=== PATIENT | female | born 1975 | race Caucasian/White ===

== ENCOUNTER 2018-03-14 10:53 | Emergency (ER) | payer BC, SELFPAY ==
[2018-03-14] VITALS (17 sets, daily range): BP systolic 84–110; BP diastolic 36–70; PULSE 103–123; RESP 14–22; TEMP 36.3–37.1; O2SAT 91–98; BMI 24.2
--- NOTE | 2018-03-14 11:24 | CT_ITS ---
STUDY: CT ABDOMEN AND PELVIS WITHOUT CONTRAST REASON FOR EXAM: Female, 42 years old. Jaundice. Weakness and leg swelling. RADIATION DOSAGE (If Supplied By Facility): CTDIvol = ( 7.89 ) mGy, DLP = ( 398.38 ) mGycm TECHNIQUE: Transaxial images were obtained from the dome of the diaphragm to the symphysis pubis without oral contrast, and without intravenous contrast. Sagittal and coronal images were reconstructed. Individualized dose optimization techniques were used for this CT. COMPARISON: None. FINDINGS: Limited views through the lower chest are unremarkable. A small pericardial effusion is seen. Liver is small with a slightly nodular surface pattern and suspicious for cirrhosis. No gross mass although this exam is limited by absence of IV contrast. No significant splenomegaly. Probable epigastric varices although these are difficult to evaluate without IV contrast. There is certainly recannulation and enlargement of the umbilical vein. Distended gallbladder with probable milk of calcium bile, possible gravel, and cannot exclude vicarious excretion of contrast from a previous exam. Pancreas grossly negative. No gross acute abnormality of the kidneys. Evaluation of the GI tract is limited by absence of oral contrast. Cannot exclude stomach wall thickening. No dilated loops of bowel or evidence for obstruction. Cannot exclude segmental thickening of the levine of the small or large bowel. Cannot exclude enteritis or colitis. Moderate diffuse fecal retention. Diverticulosis without definite diverticulitis. Appendix is not definitely seen. Moderate ascites in all quadrants. Grossly normal aorta. No definite retroperitoneal adenopathy. In the pelvis, grossly normal uterus and bladder and rectum. There is asymmetric enlargement of the right upper thigh with significant subcutaneous edema when compared to the left, and there is enlargement of most of the visualized right thigh, gluteus, and especially the right piriformis muscles. This may all be edema and/or related to intramuscular hematoma. Without IV contrast cannot evaluate patency of the iliac veins or IVC. Recommend venous Doppler of the right lower extremity. Skeletal structures are unremarkable. CT/Abdomen/Pelvis without Cont IMPRESSION: Evidence for cirrhosis and portal hypertension with with varices. Ascites. Distended gallbladder with milk of calcium bile and/or gallbladder gravel. Very limited evaluation of the GI tract-cannot exclude segments of bowel wall thickening. Asymmetric enlargement of the right thigh, right thigh muscles, gluteus muscles, and piriformis with subcutaneous edema. This can be due to obstruction of lymphatics or venous drainage. Venous Doppler recommended. Electronically Signed: John Hilton MD at 12:55 EDT , Service support ,
[2018-03-14 11:56] LABS: Absolute Lymphocyte Count 1.56 X10^3/ul (0.83-4.51); Absolute Neutrophil Count 9.6 X10^3/uL (2.0-7.7); Basophil# 0.08 X10^3/uL; Basophil% 0.6 % (0-1); Eosinophil# 0.07 X10^3/uL; Eosinophils% 0.5 % (0-5); Hematocrit 14.9 % (37-47); Lymphocyte # 1.56 X10^3/ul (4.0); Lymphocyte % 11.9 % (19-41); Mean Corp Hgb Conc 32.9 g/gl (32-36); Mean Corpuscular Hgb 38.6 pg (27.0-32.0); Mean Corpuscular Volume 117.3 fL (81-99); Mean Platelet Vol. 9.9 fl (6.2-12.0); Monocyte# 1.75 X10^3/uL; Monocyte% 13.4 % (0-10); Neutrophil # 9.56 X10^3/uL (2.7-7.7); Platelet Count 88 K/mm3 (150-450); RBC Distribution Width CV 14.1 % (11.6-14.6); RBC Distribution Width SD 55.4 fl (35.1-43.9); Red Blood Count 1.27 M/mm3 (4.2-5.4); White Blood Count 13.1 K/mm3 (4.4-11.0)
[2018-03-14 12:00] LABS: Prothrombin Time (Protime)PT. 35.6 SECONDS (11.7-14.9)
[2018-03-14 12:01] LABS: Partial Thromboplast Time 63.2 Seconds (24.1-36.2)
[2018-03-14 12:02] LABS: Hemoglobin 4.9 g/dl (12.0-15.0)
[2018-03-14 12:03] LABS: Differential Indicated SCAN CRITERIA MET; International Normalized Ratio 3.5; POSITIVE COUNT YES; POSITIVE DIFFERENTIAL YES; POSITIVE MORPHOLOGY NO
[2018-03-14 12:08] LABS: AST(SGOT) 130 U/L (15-37); Alanine Aminotransfer ALT/SGPT 33 U/L (13-56); Albumin, Serum 1.3 g/dL (3.2-5.0); Alkaline Phosphatase 141 U/L (45-117); Anion Gap 10 (5-15); BUN 7 mg/dL (7-18); BUN/Creat Ratio 13.5 RATIO (10-20); Bilirubin, Direct 5.12 mg/dL (0.00-0.30); Calcium,Total 7.1 mg/dL (8.5-10.1); Chloride 98 mmol/L (98-107); Creatinine, Serum 0.52 mg/dL (0.55-1.02); EST Glomerular Filtration Rate 136 mL/min (>60); Est Glom Filt Rate - Afr Amer 165 mL/min (>60); Estimated Creatinine Clearance 129.24 ml/min; Glucose 128 mg/dL (74-106); Potassium 4.1 mmol/L (3.5-5.1); Protein, Total 6.3 g/dL (6.4-8.2); Sodium Level 131 mmol/L (136-145)
[2018-03-14 12:20] LABS: Lactic Acid 6.4 mmol/L (0.4-2.0)
[2018-03-14 12:51] LABS: Hypochromasia 2+; Platelet Estimate MKD DEC (ADEQ); Polychromasia 1+
[2018-03-14 12:52] LABS: Other RBC Morphology 1+; Target Cells RARE
--- NOTE | 2018-03-14 13:31 | ED.DCSUM_ITS ---
- ER Visit Summary Date of Service: 03/14/18 Chief Complaint: Weakness History of Present Illness: The patient is a 42 F presenting for evaluation secondary to weakness. Patient apparently over the course of the last 2 weeks has been having issues with peripheral edema, increasing weakness, and jaundice. Patient is a long-standing history of chronic alcoholism. Patient reports that she is down to 4 beers a day. She reports that she has been drinking heavily long-term. Patient apparently saw our nurse practitioner couple weeks ago was noted to have low platelets and was recommended a oncology follow-up. Patient was also started on Lasix secondary to peripheral edema. Patient now is developing lightheadedness and nausea and also has been having blood in her stool as well as blood in her urine. She denies any pain associated with this. Review of systems otherwise negative. Physical Examination: Vital signs notable for blood pressure 85/47 heart rate of 103. Well-nourished female not in physiologic distress. Bilateral proptosis is noted with scleral icterus. Oropharynx shows moist mucous membranes. No JVD noted. Heart was tachycardic and regular. Lungs clear. Abdomen was distended with positive fluid wave and no tenderness. 2+ bilaterally symmetric peripheral edema, skin is significantly jaundiced. Patient is alert and oriented no lateralizing deficits and no evidence of asterixis Test Results: CBC shows a hemoglobin of 4.9 with a platelet count of 88, basic metabolic panel unremarkable but liver panel shows evidence of total bilirubin 8.6 direct bilirubin 5.1 INR elevated to 3.5 lactic acid elevated to 6.4 CT abdomen and pelvis shows stigmata of liver failure with ascites and portal hypertension and likely varices Emergency Department Course and Treatment: Patient presented with weakness and hypotension. She has stigmata of having liver failure. Her laboratory workup as noted above confirmed this. I did discuss this with the hospitalist at this facility and given her lack of GI backup and how ill the patient is we feel the patient needs a higher level of care. Patient was typed and crossmatched for 2 units of red cells and 2 units of plasma. I contacted [facility] who agreed to accept the patient in transfer. Patient will be transferred for further management. Disposition: Transfer Impression: 1. Hepatic failure 2. GI bleed 3. Anemia 4. History of alcoholism 5. Hypotension Critical care time 45 minutes This note was generated with [employer] dictation software. It may contain incorrect words, spelling, and punctuation that were not noted in review of the chart prior to signing ED Disposition - Plan for ED Patient: Chief Complaint: Weakness Referrals: Raffy Murray MD [Primary Care Provider] -
[2018-03-14] MEDS: Ondansetron 4 MG/2 ML Vial IV (14:58)
[2018-03-14 15:48] LABS: Reflex Lactate? Y
[2018-03-14 16:52] LABS: Lactic Acid 6.1 mmol/L (0.4-2.0)
[2018-03-16 10:04] LABS: Pathologist Review Reviewed
== END 2018-03-14 22:41 | disposition short-term general hospital (02) ==
LOC: ED 12:34
PROVIDERS: Emergency Provider Emergency Medicine; Family Provider Family Medicine; PCP Family Medicine
DX: F10.20 Alcohol dependence, uncomplicated (principal); K70.40 Alcoholic hepatic failure without coma; R18.8 Other ascites; Y90.9 Presence of alcohol in blood, level not specified; K92.2 Gastrointestinal hemorrhage, unspecified; D64.9 Anemia, unspecified; I95.9 Hypotension, unspecified; Z72.0 Tobacco use
CPT/HCPCS: 74176; 80048; 80076; 83605; 85025; 85610; 85730; 86850; 86900; 86920; 86922; 96374; 99284; J7040; P9016; P9017; A4216; J2405

== ENCOUNTER → 2019-01-08 | Outpatient (CLI) | payer BC, SELFPAY ==
[2019-01-08 15:08] LABS: Mucous, Urine 0 SEEN /hpf (<or=2+); Red Blood Cells-Urine 0 SEEN /hpf (0-5); White Blood Cells 0 SEEN /hpf (0-5)
[2019-01-08 17:49] LABS: Absolute Lymphocyte Count 1.27 X10^3/ul (0.83-4.51); Absolute Neutrophil Count 3.4 X10^3/uL (2.0-7.7); Basophil# 0.04 X10^3/uL; Basophil% 0.7 % (0-1); Eosinophil# 0.17 X10^3/uL; Eosinophils% 2.9 % (0-5); Hematocrit 41.3 % (37-47); Hemoglobin 14.5 g/dl (12.0-15.0); Lymphocyte # 1.27 X10^3/ul (4.0); Lymphocyte % 21.7 % (19-41); Mean Corp Hgb Conc 35.1 g/gl (32-36); Mean Corpuscular Hgb 37.7 pg (27.0-32.0); Mean Corpuscular Volume 107.3 fL (81-99); Mean Platelet Vol. 10.3 fl (6.2-12.0); Monocyte# 0.92 X10^3/uL; Monocyte% 15.7 % (0-10); Neutrophil # 3.44 X10^3/uL (2.7-7.7); Neutrophil % 58.8 % (47-70); Platelet Count 77 K/mm3 (150-450); RBC Distribution Width CV 13.3 % (11.6-14.6); RBC Distribution Width SD 51.9 fl (35.1-43.9); Red Blood Count 3.85 M/mm3 (4.2-5.4); White Blood Count 5.9 K/mm3 (4.4-11.0)
[2019-01-08 17:50] LABS: POSITIVE COUNT NO; POSITIVE DIFFERENTIAL NO; POSITIVE MORPHOLOGY NO
[2019-01-08 17:53] LABS: Color, Urine Yellow (Yellow); Glucose, Dipstick Normal (Normal); Ketone-Dipstick Negative (Negative); Leukocyte Esterase-Dipstick 25 /ul (Negative); Nitrite-Dipstick Positive (Negative); Occult Blood-Urine Negative /ul (Negative); Protein-Dipstick Negative (Negative); Specific Gravity, Urine 1.005 (1.002-1.030); Urine Bilirubin Dipstick Negative (Negative); Urine Clarity Clear (Clear); Urine Urobilinogen Normal (Normal)
[2019-01-08 18:02] LABS: International Normalized Ratio 1.8
[2019-01-08 18:12] LABS: ALB/GLOB Ratio 0.6 RATIO (0.9-2.4); AST(SGOT) 88 U/L (15-37); Alanine Aminotransfer ALT/SGPT 47 U/L (13-56); Albumin, Serum 3.4 g/dL (3.2-5.0); Alkaline Phosphatase 157 U/L (45-117); Anion Gap 9 (5-15); BUN 4 mg/dL (7-18); Calcium,Total 8.5 mg/dL (8.5-10.1); Chloride 98 mmol/L (98-107); Cholesterol 173 mg/dL (200); EST Glomerular Filtration Rate 142 mL/min (>60); Est Glom Filt Rate - Afr Amer 172 mL/min (>60); Globulin 5.4 g/dL (2.2-4.2); Glucose 103 mg/dL (74-106); High Density Lipoprotein 83 mg/dL; Potassium 3.7 mmol/L (3.5-5.1); Protein, Total 8.8 g/dL (6.4-8.2); Sodium Level 136 mmol/L (136-145); Thyroid Stim Hormone (TSH) 1.94 uIU/mL (0.358-3.74); Triglycerides 88 mg/dL; Very Low Density Lipoprotein 18 mg/dL (5-40)
[2019-01-08 18:25] LABS: Bacteria 2+ /hpf (None Seen); Squamous Epithelial Cells - UA 0-5 SEEN /hpf (5-10)
[2019-01-09 14:28] LABS: Vitamin B12 > 2000 pg/mL (211-911)
== END | disposition home or self-care (01) ==
PROVIDERS: Family Provider Family Medicine; PCP Family Medicine; Referring Provider Family Medicine; Visit Provider Family Medicine
DX: D75.89 Other specified diseases of blood and blood-forming organs (principal); K72.90 Hepatic failure, unspecified without coma; I70.201 Unspecified atherosclerosis of native arteries of extremities, right leg
CPT/HCPCS: 36415; 80053; 80061; 81001; 82140; 82607; 84443; 85025; 85610

== ENCOUNTER → 2019-03-01 | Outpatient (CLI) | payer BC, SELFPAY ==
[2018-03-14 10:54] VITALS: BMI 24.2
[2019-03-01 17:52] LABS: ALB/GLOB Ratio 0.6 RATIO (0.9-2.4); AST(SGOT) 111 U/L (15-37); Alanine Aminotransfer ALT/SGPT 53 U/L (13-56); Albumin, Serum 3.6 g/dL (3.2-5.0); Alkaline Phosphatase 142 U/L (45-117); Anion Gap 14 (5-15); BUN 4 mg/dL (7-18); Bilirubin, Direct 1.65 mg/dL (0.00-0.30); Calcium,Total 8.7 mg/dL (8.5-10.1); Chloride 97 mmol/L (98-107); Creatinine, Serum 0.57 mg/dL (0.55-1.02); EST Glomerular Filtration Rate 121 mL/min (>60); Est Glom Filt Rate - Afr Amer 147 mL/min (>60); Globulin 5.8 g/dL (2.2-4.2); Glucose 97 mg/dL (74-106); Potassium 3.6 mmol/L (3.5-5.1); Protein, Total 9.4 g/dL (6.4-8.2); Sodium Level 137 mmol/L (136-145)
[2019-03-01 18:01] LABS: International Normalized Ratio 1.8; Prothrombin Time (Protime)PT. 20.4 SECONDS (11.7-14.9)
== END | disposition home or self-care (01) ==
LOC: MFPLAB 15:39
PROVIDERS: Family Provider Family Medicine; PCP Family Medicine; Referring Provider Family Medicine; Visit Provider Family Medicine
DX: K72.90 Hepatic failure, unspecified without coma (principal)
CPT/HCPCS: 36415; 80053; 82140; 82248; 85610

== ENCOUNTER → 2019-03-20 | Outpatient (CLI) | payer BC, SELFPAY ==
[2018-03-14 10:54] VITALS: BMI 24.2
--- NOTE | 2019-03-20 09:59 | US_ITS ---
STUDY: ABDOMINAL ULTRASOUND - RIGHT UPPER QUADRANT REASON FOR VISIT: Female, 43 years old. Liver failure TECHNIQUE: Ultrasound evaluation of the right upper quadrant was performed with real-time and static sanchez-scale imaging. TECHNICAL QUALITY: Adequate. COMPARISON: None. FINDINGS: Liver: The liver measures 15.6 cm. There is heterogeneous echogenicity of the liver. The bile ducts are within normal limits. There is hepatic color flow. The direction of portal flow is hepatopetal. There is no demonstrated mass lesion. Gallbladder: Normal distended gallbladder. The gallbladder wall measures 6 mm. There is a negative sonographic Denney's sign. There is no pericholecystic fluid. There is a solitary gallstone. Common Bile Duct (C.B.D.): The common bile duct measures 6 mm. Pancreas: Normal size of the head, body and tail of the pancreas. There is heterogeneous echogenicity of the pancreas. There is no demonstrated pancreatic mass or cyst. Right Kidney: Normal size of the right kidney. The right kidney measures 14.6 x 5.7 x 4.8 cm. Normal renal cortex. The right cortex measures 1.2 cm. There is no demonstrated renal mass or cyst. There is no right hydronephrosis. US/Liver IMPRESSION: Enlarged liver demonstrating diffuse hepatocellular disease. Cholelithiasis without definitive evidence for acute cholecystitis. This may be further assessed with HIDA scan if indicated.. Heterogeneous appearance of pancreas possibly artifactual. If concern for pancreatic disease PET scan recommended Electronically Signed: Cullen Deras MD at 19:39 EDT , Service support ,
== END | disposition home or self-care (01) ==
LOC: US 09:57
PROVIDERS: Family Provider Family Medicine; PCP Family Medicine; Referring Provider Family Medicine; Visit Provider Family Medicine
DX: K72.90 Hepatic failure, unspecified without coma (principal)
CPT/HCPCS: 76705

== ENCOUNTER → 2019-04-02 | Outpatient (CLI) | payer BC, SELFPAY ==
[2018-03-14 10:54] VITALS: BMI 24.2
--- NOTE | 2019-04-02 16:16 | CT_ITS ---
STUDY: CT ABDOMEN WITH CONTRAST REASON FOR EXAM: Female, 43 years old. Jaundice RADIATION DOSAGE (If Supplied By Facility): CTDIvol = ( 10.6 ) mGy, DLP = ( 352.05 ) mGycm TECHNIQUE: Transaxial images were obtained post I.V. administration of 100CC IV/Oral Isovue 300, and oral contrast. Sagittal and coronal images were reconstructed. Individualized dose optimization techniques were used for this CT. COMPARISON: 03/14/2018 FINDINGS: The visualized lung bases are unremarkable. The visualized portions of the heart are within normal limits. Stable changes of cirrhosis. No enhancing liver masses are seen. Multiple gallstones. Increasing prominence of multiple upper abdominal varices. Recanalization of the umbilical vein. Normal spleen. Normal pancreas. Normal bilateral adrenal glands. Normal right kidney. Normal left kidney. Normal visualized stomach. Normal small intestine. Normal colon. There is non-visualization of the appendix. Normal abdominal aorta. Normal inferior vena cava. Normal retroperitoneum. Normal abdominal wall. Normal osseous structures. CT/Abdomen WITH IV Contrast IMPRESSION: Stable changes of cirrhosis. No enhancing liver masses are seen. Multiple gallstones. Increasing prominence of multiple upper abdominal varices. Recanalization of the umbilical vein. No upper abdominal ascites is seen at this time. Electronically Signed: Jose Armando Guadarrama MD at 16:43 EDT Tel , Service support ,
== END | disposition home or self-care (01) ==
LOC: CT 16:15
PROVIDERS: Family Provider Family Medicine; PCP Family Medicine; Referring Provider Family Medicine; Visit Provider Family Medicine
DX: R17 Unspecified jaundice (principal)
CPT/HCPCS: 74160; Q9967